=== PATIENT | female | born 1965 | race Caucasian/White ===

== ENCOUNTER 2016-09-09 07:14 | Day surgery (SDC) | payer OTHER ==
[2016-09-09] VITALS (15 sets, daily range): BP systolic 104–137; BP diastolic 55–95; PULSE 69–86; RESP 11–20; O2SAT 72–100
[~2016-09-09] VITALS: Ht 157.5 cm; Wt 76.0 kg
[2016-09-09] MEDS: Lactated Ringer's 1,000 ML IV SCH ×3 (05:00→09:48)
[~2016-09-09 07:14] MED LIST: METH750T3 PO; MULT-1018 PO; NAPR220C11 PO; mirena INTRAUTERI
[2016-09-09] MEDS ORDERED: Dexamethasone 4 mg/mL Inj ONE (07:15)
[2016-09-09] MEDS ORDERED: Morphine PF 1 mg/mL 10 mL Inj ONE (07:15)
[2016-09-09] MEDS ORDERED: Ondansetron 2 mg/mL 2 mL Inj ONE (07:15)
[2016-09-09] MEDS ORDERED: Remifentanil 1 mg/3 mL Inj ONE (07:15)
[2016-09-09] MEDS ORDERED: Ketamine 10 mg/mL 20 mL Inj ONE (07:15)
[2016-09-09] MEDS ORDERED: fentaNYL-PF 50 mCg/mL 2 mL Inj ONE (07:15)
[2016-09-09] MEDS ORDERED: Bupiv-Spinal 0.75%/Dex 8.25% 2 mL Inj ONE (07:15)
[2016-09-09] MEDS ORDERED: CeFAZolin 2 Gm/50 mL D5W Duplex Bag IV ONE (07:44)
[2016-09-09 08:01] LABS: BASOPHILS % (AUTO) 0.4 % (0-3); EOSINOPHILS % (AUTO) 1.8 % (0-5); MONOCYTES % (AUTO) 9.1 % (4-12); Mean Corpuscular Volume 90.1 fL (81-100); NEUTROPHILS % (AUTO) 64.7 % (40-74); Platelet Count 256 bil/L (150-400)
[2016-09-09] MEDS ORDERED: OMEG500C3 PO (08:04)
[2016-09-09] MEDS ORDERED: [UNRECOGNIZED DRUG - OTHER] PO (08:04)
--- NOTE | 2016-09-09 09:15 | PCM.HPANE ---
Patient Data Surgeon Admitting Provider: Attending Provider:Vasile Rider MD Primary Care Physician:Debbie Merino MD Other Provider:Paresh Mendoza Anesthesia Reason for Visit Stress Incontinence,Pelvic Floor Relaxation Ht/WT & BMI Height (Feet): 5 Height (Inches): 2.00 Weight (Kilograms): 74.2 Body Mass Index 30.00 Allergies Coded Allergies: Sulfa (Sulfonamide Antibiotics) (Verified Allergy, Intermediate, Itching, 10/19/09) hydrocodone (Verified Allergy, Unknown, vomit, 09/08/16) nabumetone (Verified Allergy, Unknown, Hives, 07/28/14) Uncoded Allergies: ABSORBABLE STITCHES (Allergy, Unknown, 07/28/14) Pt states absorbable stitches do not absorb. Past Anesthesia History Anesthesia History: Denies:: Abnormal Airway, Anesthesia Reactions, Difficult Intubation, Fam Anesthesia Reaction, Fam Malignant Hypertherm, Malignant Hyperthermia Diabetes History Hx Diabetes?: No MRSA MRSA: No Medications Hypertension Medication: No Home Meds Incl Beta Praveen: No Reported Medications [seawood] No Conflict Check PO prn 09/09/16 [place]-3 Fatty Acids (Fish Oil)500 Mg Iriksww020 Mg PO 09/09/16 Multivitamin (Multi Vitamin Daily)1 Each Tablet1 Each PO DAILY 30 Days Ref 0 09/08/16 Methocarbamol 750 Mg Tablet1,500 Mg PO Q12H PRN For Spasm Ref 0 09/08/16 Naproxen Sodium (Aleve)220 Mg Aliugvz818 Mg PO DAILY PRN For Pain 09/08/16 [mirena] 20 mcg/24hrs No Conflict Check20 Mcg INTRAUTERI 09/08/16 Discontinued Reported Medications Fexofenadine-Expunged Drug, Do Not Renew! 180 Mg Ockcdb370 Mg PO DAILY 07/31/12 diphenhydrAMINE-Expunged Drug, Do Not Renew! 25 Mg Cap25 Mg PO PRN 07/31/12 [place]-3/Dha/Epa/Fish Oil-Expunged Drug, Do No (Fish Oil 1,000 Mg-Expunged Drug, Do Not Renew)1 Each Capsule.dr1 Each PO DAILY 07/31/12 Ascorbate Calcium/Bioflav (Gilda-C 1,000 Mg Tablet)1 Each Tablet1 Each PO DAILY 07/31/12 Methocarbamol-Expunged Drug, Do Not Renew! (Cabsemv-208-Zhphirhw Drug, Do Not Renew!)750 Mg Fqimdr675-9,500 Mg PO TID 07/31/12 FLUTICASONE-Expunged Drug, Do Not Renew! (FLONASE-Expunged Drug, Do Not Renew!) 120 Sprays/16 Gm Aero2 Sprays NA DAILY 07/31/12 Gabapentin-Expunged Drug, Do Not Renew! (Neurontin-Expunged Drug, Do Not Renew!) 600 Mg Sjnwql821-645 Mg PO BID PRN 07/31/12 History History of ENT Problems?: Yes HEENT History: Positive for:: Sinus Problem (Year round allergies/multiple surgeries) Denies:: Abnormal Airway Difficult Intubation Hearing Problem Denture Type: Partial- Upper Hx of Heart Problems?: No Cardiovascular History: Positive for:: Chest Pain (Pleuritic chest pain) Denies:: AICD Congestive Heart Failure Heart Murmur Hypertension Irregular Heartbeat Pacemaker Hx of Respiratory Problem?: Yes Respiratory History: Positive for:: Pneumonia (hx of post surgical ) Denies:: Asthma COPD Emphysema Oxygen Administration Tuberculosis Use of C-PAP Machine Use of Inhalers / NEBS Hx Neurologic Problems?: Yes Neurological History: Positive for:: Dizziness (past hx, not currently maybe with sinuses) Headaches (with illnesses) Denies:: CVA Multiple Sclerosis Parkinson's Disease Seizures TIA Hx of GI Problems?: Yes Gastrointestinal History: Positive for:: Hiatal Hernia (on no meds) Denies:: Gall Bladder Disease Gastroesphageal Reflux Gastrointestinal Bleeding Hepatitis Liver Disease Rectal Bleeding Hx of Problems?: Yes Genitourinary History: Denies:: Urinary Tract Infection (hx of) Female Hx: Denies:: Currently Endometriosis Pelvic Inflammatory Problems with Breasts? Skin History: Denies:: History Skin Disorders? Pressure Ulcers Hx Musculoskeletal Problems?: Yes Musculoskeletal History: Positive for:: Back Injury (cervical fusion hx) Musculoskeletal Trauma (right shoulder hx ) Osteoarthritis Denies:: Degenerative Joint Fibromyalgia Joint Replacement Myasthenia Gravis Systemic Lupus Hx of Psycho/Social Problems?: Yes Psycho Social History: Positive for:: Anxiety (lots of stress, no active treatment) Hx Depression Hx Surgeries?: Yes (right shoulder, cervical fusion, ) Hx Any Other Health Problems?: Yes Other History: Positive for:: Hospitalization Denies:: Cancer Endocrine Disease Thyroid Disease History Blood Transfusions: Positive for:: Accept Blood Products? Denies:: Blood Transfuse Reaction Blood Transfusions Hx Diabetes: No Hx Alcohol Use: YesAlcoholic Drinks Per Day: one to three drinks weeklyHx Substance Use: No Smoking Status: Former Smoker Have You Smoked inLast 12 mo: No Stop/Bang Treated for Sleep Apnea?: No Do You Have a CPAP Machine?: No S-Snoring: Do You Snore Loudly: No T-Tired: feel tired, fatigued: Yes O-Obsered: Observed not breath: No P-Blood Pressure: treated: No B- Body Mass Index > 35 kg/m2: No A- Age over 50: Yes N- Neck Large Circumference: No G- Gender Male: No UVALDO Total Score: 2 UVALDO Risk Assessment: Low Risk, <3 Yes Risk Assessment Category Category 1A: Patient has history of documented sleep apnea, and HAS NOT received any narcotic, sedative or anesthesia administration during this stay. Category 1B: Patient has history of documented sleep apnea, and HAS received any narcotic , sedative or anesthesia administration during this stay Category 2: Patient has SUSPECTED Obstructive Sleep Apnea, and HAS received any narcotic , sedative or anesthesia administration during this stay. Category 3: Patient has SUSPECTED Obstructive Sleep Apnea and HAS NOT received narcotic, sedative or anesthesia administration during this stay. Category 4: Outpatient in Procedural Areas with known sleep apnea or who screen positive for High Risk via the STOP/BANG questionnaire. Exam Exam Vital Signs Vital Signs Date Time Temp Pulse Resp B/P Pulse Ox O2 Delivery O2 Flow Rate FiO2 09/09/16 07:54 36.6 72 18 118/82 96 Room Air General Appearance: Alert, Oriented X3, Cooperative, No Acute Distress HEENT/AIRWAY: MP 2 Lungs: Clear to Auscultation, Normal Air Movement Heart: Exam Unremarkable, Regular Rate/Rhythm, No Murmurs/Rubs/Gallops Meds/Labs/Diagnostics Admission Meds Current Medications Lactated Ringer's (Lr) 1,000 ml @ 120 mls/hr Q8H20M IV Last administered on t 07:30; Start 09/09/16 at 05:00; Stop 09/09/16 at 13:19 Labs Test 09/09/16 07:53 White Blood Count 8.3th/mm3 (3.8-10.1) Red Blood Count 4.43mil/mm3 (3.90-5.20) Hemoglobin 13.3g/dL (12.0-15.6) Hematocrit 39.9% (35.0-46.0) Mean Corpuscular Volume 90.1fL (81-100) Mean Corpuscular Hemoglobin 30.0pg (27.0-35.0) Mean Corpuscular Hemoglobin Concent 33.3% (32.0-37.0) Red Cell Distribution Width 12.0% (12.3-15.4) Platelet Count 256bil/L (150-400) Neutrophils (%) (Auto) 64.7% (40-74) Lymphocytes (%) (Auto) 23.9% (14-46) Monocytes (%) (Auto) 9.1% (4-12) Eosinophils (%) (Auto) 1.8% (0-5) Basophils (%) (Auto) 0.4% (0-3) Plan Impression Patient chart reviewed, patient interviewed and anesthestic plan with risks, benefits, and alternatives discussed, and informed consent obtained. NPO Status: water at 0500 ASA Physical Status: ASA2 Mod Systemic Disease Anesthetic Plan: SAB Bene/Risks/Altern/Consents: Yes HP Complete Prior to Induction: Yes Massimo Luo MD Sep 09, 2016 09:15
[2016-09-09] MEDS ORDERED: Bupivacaine-MPF 0.5% W/EPI 30 mL Inj INFILTRATE ONE (10:42)
[2016-09-09] MEDS ORDERED: PITRESSIN INFILTRATE ONE (10:43)
[2016-09-09] MEDS ORDERED: Gentamicin 40 mg/mL 2 mL Inj IRRIGATION ONE (11:06)
[2016-09-09] MEDS ORDERED: Estrogens Conjugated 30 Gm Vaginal Cream VAGINAL ONE ×2 (13:10→13:55)
[2016-09-09] MEDS ORDERED: Lactated Ringer's 1,000 ML IV ONE (13:33)
[2016-09-09] MEDS ORDERED: Dexamethasone 4 mg/mL Inj IVPUSH PRN (13:35)
[2016-09-09] MEDS ORDERED: Lactated Ringer's 1,000 ML IV SCH (13:35)
[2016-09-09] MEDS ORDERED: MetoCLOpramide 5 mg/mL 2 mL Inj IVPUSH PRN (13:35)
[2016-09-09] MEDS ORDERED: EPHEDrine Sulfate 50 mg/mL Inj IVPUSH PRN (13:35)
[2016-09-09] MEDS ORDERED: Ondansetron 2 mg/mL 2 mL Inj IVPUSH PRN (13:35)
[2016-09-09] MEDS ORDERED: Lactated Ringer's 500 ML IV PRN (13:35)
[2016-09-09] MEDS ORDERED: fentaNYL-PF 50 mCg/mL 2 mL Inj IVPUSH PRN (13:35)
[2016-09-09] MEDS ORDERED: Phenylephrine 10,000 mCg/mL Inj IVPUSH PRN (13:35)
[2016-09-09] MEDS ORDERED: Senna-Docusate 8.6-50 mg Tablet PO PRN (13:55)
[2016-09-09] MEDS ORDERED: Alum-Mag Hydrox-Simeth 30 mL Suspension PO PRN (13:55)
--- NOTE | 2016-09-09 14:40 | OP ---
[address] [address] OPERATIVE REPORT PATIENT: BRANDT BEDOYA : 1965 MR#: [id number] ADMIT: 09/09/2016 JOB ID: [id number] CORRECTED REPORT: DATE OF SURGERY: 09/09/2016 PROCEDURE: 1. Vaginal hysterectomy. 2. Posterior repair. 3. Mid urethral transobturator sling placement. PREOPERATIVE DIAGNOSIS(ES): 1. Uterine prolapse. 2. Cystocele. 3. Rectocele. 4. Stress urinary incontinence. POSTOPERATIVE DIAGNOSIS(ES): 1. Uterine prolapse. 2. Cystocele. 3. Rectocele. 4. Stress urinary incontinence. SURGEON: Vasile Rider MD. POLYSOMNOGRAPHER: Mayte Stratton MD. ANESTHESIA: General ANESTHESIOLOGIST: Massimo Luo MD. ESTIMATED BLOOD LOSS: 150 mL. ESTIMATED FLUIDS: 2000 mL of lactated Ringer. ESTIMATED URINE OUTPUT: 300 mL of urine. FINDINGS: Grade 2 uterine prolapse, grade 1 cystocele, grade 3 rectocele. Normal appearance of the cervix and the external genitalia. DESCRIPTION OF PROCEDURE: The patient was brought to the operating room, where she underwent spinal anesthesia without difficulty. The patient was placed in deep dorsal lithotomy position using Rj stirrups. She was prepped and draped in usual surgical fashion. She received preoperative antibiotics. Brenda Hugger was used to maintain adequate core body temperature. Time-out was performed verifying correct patient, correct procedure. A weighted speculum was placed into the vagina. The cervix was identified and grasped with two tenaculums. It was circumferentially injected with a solution of vasopressin and normal saline. Twenty units of vasopressin were diluted in 100 mL of normal saline, total of 70 mL of solution were used throughout the surgery. A long Laurita clamp was placed posteriorly on the vaginal mucosa overlying the pouch of Rashad. Plication was created and with Floyd scissors, sharp incision was made towards the cervix, and posterior cul-de-sac was entered. A 0 Vicryl suture was used to reapproximate the posterior peritoneum and posterior part of the vaginal mucosa. A circumferential incision was made with the Bovie and using Metzenbaum scissors and moist laparotomy sponge, the vaginal mucosa was dissected away from the cervix and up, the same was done on both lateral sides. Using pickup, anterior part of the peritoneum overlying the cervix was tented up, and it was sharply entered using Metzenbaum scissors. The anterior cul-de-sac was entered and right-angle retractor was placed through it to keep the bladder away from the operative field. Using Jean Carlos clamps, the patient's uterosacral and cardinal ligaments on both sides were clamped, transected with Floyd scissors and suture ligated using 0 Vicryl. The arteries on both sides were also clamped with a Jean Carlos clamp, transected with Floyd scissors and suture ligated using 0 Vicryl. Further dissection was provided along the broad ligament, followed by tubo-ovarian ligaments, fallopian tubes and round ligaments. These were in a similar fashion, suture ligated and transfixed using 0 Vicryl. The specimens, uterus and cervix, were removed and sent to Pathology. Both uterosacral ligaments on the patient's left and right side were identified, tented up with Allis clamp and suspended to the vaginal cuff using 0 Prolene suture. As a result of vaginal cuff suspension, the anterior defect cystocele was basically reduced. Circumferential running locked stitch was placed to reapproximate peritoneum and vaginal mucosa anteriorly and posteriorly. Good hemostasis was achieved. The vaginal cuff was closed with 0 Vicryl. Transobturator sling was placed. Solution of Pitressin was injected in the mid urethra, sagittal incision was made with a size 15 scalpel. The vaginal mucosa was dissected from pubovesical fascia overlying mid urethra using Metzenbaum scissors. Further dissection was made laterally creating tunnels towards the obturator foramen until the scissors reached the pubic ramus. Skin entry points were marked at the insertion of adductor longus muscle on both sides at the level of the clitoris. Skin incisions were made using scalpel. Using Ortiz passing needles with outside in rotating emotion, the obturator membranes on both sides were perforated and the needles exited at mid urethra. Ortiz tension-free tape was attached to the needle and with a backward motion, it was placed without tension in the midurethral portion. FloSeal solution was used to achieve better hemostasis. Vaginal mucosa was reapproximated with 0 Vicryl in a running, locking fashion. The tape at the skin exit was trimmed and the skin was reapproximated with one interrupted 0 Vicryl suture, Dermabond glue was applied as well. Posterior repair was performed. Pitressin solution was injected in a sagittal plane along the area of the rectocele. Two Allis clamps were placed on the perineal body on both sides. Transverse incision was made with a scalpel and further dissected towards the apex of the vagina using Metzenbaum scissors. The vaginal mucosa was from the underlying endopelvic fascia using Metzenbaum scissors. Series interrupted plicating 0 Vicryl sutures were applied along the rectocele to reduce the defect. The vaginal mucosa was trimmed and reapproximated with 0 Vicryl in a running, locking fashion. Vaginal packing with Premarin cream was inserted. Cystoscopy was performed using 70-degree scope, the bladder mucosa was found to be intact. Both ureters were patent with both ureteral jets seen. The urethra was found to be intact as well, the urine was clean. The cystoscope was removed and the Rizzo catheter was replaced. The patient was repositioned back into a supine position. She tolerated the procedure well and was transferred to the recovery room in stable condition. ADDITIONAL INFORMATION: The assistance of Dr. Stratton was necessary for tissue retraction, handling of the tissue, help with visualization during vaginal hysterectomy and posterior repair. Addenda added by JAKOB 12/28/16 at 9:07am
--- NOTE | 2016-09-09 15:12 | PCM.ANEP1 ---
Post Anesthesia Phase 1 PACU Phase 1 Assessment Vital Signs Vital Signs Date Time Temp Pulse Resp B/P Pulse Ox O2 Delivery O2 Flow Rate FiO2 09/09/16 14:47 37.3 76 17 125/68 98 Room Air 09/09/16 14:40 74 20 130/68 99 Room Air 09/09/16 14:29 80 20 117/61 98 Room Air 09/09/16 14:24 74 16 121/72 99 Room Air 09/09/16 14:17 19 100 09/09/16 14:10 37.1 75 20 132/65 97 Room Air 09/09/16 14:05 69 20 121/58 97 Room Air 09/09/16 14:03 14 72 09/09/16 14:00 79 14 115/63 98 Room Air 09/09/16 13:55 69 11 110/55 98 Nasal Cannula 2 09/09/16 13:50 36.8 73 13 104/74 98 Nasal Cannula 2 09/09/16 07:54 36.6 72 18 118/82 96 Room Air Anesthetic Administered: SAB Level of Alertness: Awake, talking CASTILLO's with Equal Strength: Yes Pain: No Nausea or Vomiting: No Oxygen Delivery: Nasal Cannula Lungs: Clear to Auscultation, Normal Air Movement Dermatome Level: L3,4 (Thigh) Massimo Luo MD Sep 09, 2016 15:12
--- NOTE | 2016-09-09 15:13 | PCM.ANEP2 ---
Post Anesthesia Evaluation ASA/CMS Post Anesthesia VS in Patient's Normal Range?: Yes Resp Stable; Airway Patent?: Yes CV Function & Hydration Stable: Yes Mental Status Recovered?: Yes Pain control Satisfactory?: Yes N/V Control Satisfactory?: Yes Massimo Luo MD Sep 09, 2016 15:13
--- NOTE | 2016-09-09 15:25 | NUR ---
Post op Pt arrived to the unit at 1525. Pt was able to transfer to the bed with some assistance. Vaginal packing in place. Rizzo catheter is patent and draining to gravity. A&Ox3. No c/o pain or nausea. CASTILLO with some numbness in her feet. Oriented to room, and DVD was played for pt. Call light within reach. Care continues.
--- NOTE | 2016-09-09 18:40 | NUR ---
Marycruz pad Pt had some serosanguineous drainage on her marycruz-pad when she came from PACU. 1630 marycruz pad was saturated and changed. Vaginal packing is coming out about 6 inches. Replaced marycruz pad. Will continue to monitor.
[2016-09-09] MEDS: MetoCLOpramide 5 mg/mL 2 mL Inj IVPUSH PRN (20:19)
[2016-09-09] MEDS: Senna-Docusate 8.6-50 mg Tablet PO SCH (22:50)
--- NOTE | 2016-09-10 04:36 | NUR ---
Peripad / Vag packing / light headed Vag packing hangs about 6 inches out. left in place for MD to remove in AM. 2nd Malaika pad almost saturated. 3rd peripad minimal saturation. Discharge has slowed significantly. Pt states pain tolerable at 3/10. APAP seems to work well. C/O light headed when standing up and became nauseous earlier in the evening. Advised to continue bedrest and sit up slowly next time. We will dangle longer prior to standing as well and see if this helps. Care continues.
--- NOTE | 2016-09-10 04:39 | NUR ---
Blood from Rectum Per ONLINE CONTENT EDITOR small amount of blood was passes from rectum in commode. darker red. Will continue to monitor.
[2016-09-10 05:08] VITALS: BP 108/67; PULSE 54; RESP 20; O2SAT 100
[2016-09-10] MEDS ORDERED: CeFAZolin Inj 2 GM in IV Premix 1 EACH IV SCH (06:00)
[2016-09-10 06:23] LABS: BASOPHILS % (AUTO) 0 % (0-3); EOSINOPHILS % (AUTO) 0.2 % (0-5); MONOCYTES % (AUTO) 7.4 % (4-12); Mean Corpuscular Hemoglobin 30.2 pg (27.0-35.0); Mean Corpuscular Volume 90.7 fL (81-100); NEUTROPHILS % (AUTO) 84.6 % (40-74); Platelet Count 237 bil/L (150-400)
[2016-09-10] MEDS: oxyCODONE-Acetamin 5-325 mg Tablet PO PRN ×3 (08:49→22:37)
[2016-09-10] MEDS: Senna-Docusate 8.6-50 mg Tablet PO SCH ×2 (08:49→20:02)
[2016-09-10 15:19] VITALS: BP 105/68; PULSE 77; RESP 18; O2SAT 98
--- NOTE | 2016-09-10 18:22 | NUR ---
nguyen dcd this am, pt voiding sufficiently, vag packing removed at same time, having mod amt vag bleeding, used 2-3 pads this shift, taking Percocet for pain and having good pain control
[2016-09-10 20:15] VITALS: BP 137/84; PULSE 77; RESP 20; O2SAT 96
--- NOTE | 2016-09-11 02:31 | NUR ---
Pain / Ambulation Pain controlled with 1 tab Percocet PRN Q4. Pt typically goes 4-6hrs before c/o pain. Pain is in vaginal area buring stinging pressure. Ambulating independently with steady gait to bathroom. Care continues
[2016-09-11 05:53] VITALS: BP 106/67; PULSE 65; RESP 16; O2SAT 97
[2016-09-11] MEDS ORDERED: CeFAZolin Inj 2 GM in IV Premix 1 EACH IV SCH (06:00)
[2016-09-11 06:24] LABS: BASOPHILS % (AUTO) 0.3 % (0-3); EOSINOPHILS % (AUTO) 1.1 % (0-5); Mean Corpuscular Hemoglobin 30.3 pg (27.0-35.0); Mean Corpuscular Volume 92.9 fL (81-100); NEUTROPHILS % (AUTO) 68.9 % (40-74); Platelet Count 189 bil/L (150-400)
[2016-09-11] MEDS: Senna-Docusate 8.6-50 mg Tablet PO SCH (07:27)
[2016-09-11] MEDS: oxyCODONE-Acetamin 5-325 mg Tablet PO PRN ×2 (07:29→12:27)
[2016-09-11] MEDS: MetoCLOpramide 5 mg/mL 2 mL Inj IVPUSH PRN (08:50)
--- NOTE | 2016-09-11 10:20 | PCM.DIMED ---
Discharge Instructions Date of Service Sep 11, 2016 Dates of Hospitalization Diet No restrictions Activity No restrictions Call your provider Fever or Chills, Shortness of breath, Bleeding, Chest pain, Vomitting, Excessive diarrhea, Weakness (unilateral) Patient Instructions Follow-up with PCP in: 2 weeks Vasile Rider MD Sep 11, 2016 10:20
[2016-09-11] MEDS ORDERED: FLUC150T3 PO (10:25)
[2016-09-11] MEDS ORDERED: IBUP800T28 PO (10:25)
[2016-09-11] MEDS ORDERED: CIPR-231 PO (10:25)
[2016-09-11] MEDS ORDERED: DOCU-41 PO (10:25)
[2016-09-11] MEDS ORDERED: OXYC1TAB24 PO (10:25)
[2016-09-11] MEDS ORDERED: ONDA4SOL PO (10:25)
[2016-09-11 10:38] VITALS: BP 111/74; PULSE 66; RESP 16; O2SAT 98
--- NOTE | 2016-09-11 11:15 | NUR ---
pain/emesis Pt this morning c/o 4/10 pelvic and rectum pain. Pt voiding well to toilet, at times dribbles, pink tinged urine and scant blood noted on pads. Medicated with 1 tab percocet per prn orders and given with saltine crackers. Pt about 1.5 hrs later vomited undigested foot, about 600ml, and states "my breakfast just didn't come fast enough". Pt states she has had trouble in the past with taking pain medication on empty stomach. Medicated with prn reglan for nausea and pt reports medications effective at decreasing pain and nausea, pain more tolerable at 2/10. Encouraged pt to have snacks with pain medication to prevent nausea. Pt agrees. Plan for pt to discharge today. Will continue to monitor. Frequent rounding. Call light in reach. Care continues.
--- NOTE | 2016-09-11 13:46 | NUR ---
discharge Orders to discharge pt to home. Pt tolerated 2nd dose 1 tab percocet after eating lunch and states working well for pain, no further nausea at this time. IV d/c'd intact by charge out clerk. Reviewed discharge instructions and medications with pt and pt verbalizes understanding. Pt's friend to come pick her up to drive her home. Pt to f/u with post-op appt on 09/22 as previously arranged. Also instructed pt to call her PCP Dr. Merino to schedule a f/u appt for 2 weeks. Hard copies of Rx given to pt. Care notes provided on medications, bladder sling procedure, vaginal hysterectomy, cystocele, rectocele, uterine prolapse. Pt will discharge to home when ride available. Care continues. Addendum: 09/11/16 at 1436 by CHANI MEDEROS RN Pt's friend here to pick her up and drive her home. Escorted out via wheelchair with ADVERTISING CLERK and discharged to home with friend driving at 1420. Pt has all belongings at discharge and discharged in stable condition.
--- NOTE | 2016-09-11 15:29 | DIS ---
[address] [address] DISCHARGE SUMMARY PATIENT: BRANDT BEDOYA : 1965 MR#: [id number] ADMIT: 09/09/2016 JOB ID: [id number] DIS: 09/11/2016 ADMITTING DIAGNOSES: 1. Uterine prolapse. 2. Cystocele. 3. Rectocele. 4. Stress urinary incontinence. DISCHARGE DIAGNOSES: 1. Uterine prolapse. 2. Cystocele. 3. Rectocele. 4. Stress urinary incontinence. 5. Status post vaginal hysterectomy with posterior repair and mid urethral transobturator sling placement. The patient is a 51-year-old, 5, para 2, who came to the hospital on September 09, 2016, and underwent a vaginal hysterectomy with posterior repair and TOT mid urethral sling placement. The surgery went uncomplicated, estimated blood loss was 150 mL. The patient was kept overnight for pain management and observation. On postoperative day one, she was stable, had minimal complaints about postoperative pain. The vital signs were temperature 36.8, pulse 64, blood pressure 108/67. The abdomen was nondistended and nontender. Vaginal packing was removed; it was bloody. She had mild vaginal spotting. Rizzo catheter was removed as well. Urine was clear. Postvoid residual was normal. She had a stable postoperative hematocrit of 34.3, white blood cell count on day one was 20.6. The patient was kept for one extra day. On the postoperative day one, September 11, 2016, vital signs were stable. Temperature 36.6, pulse 65, blood pressure 106/67, pulse oximetry showed 97th percentile of oxygenation on room air. She was able to void normally, postvoid residual was normal, vaginal spotting resolved. Her labs came back normal. White blood cell count decreased to 11.7. The patient was able to ambulate, she was not in pain. The only complaint was nausea and one episode of vomiting in the morning after breakfast. By the middle of the day, the nausea resolved. The patient was discharged home with all discharge criteria met. Discharge instructions were provided to the patient. She was given discharge medications includin. Percocet. 2. Motrin extra-strength. 3. Colace 100 mg p.o. b.i.d. p.r.n. 4. Ondansetron 4 mg p.o. t.i.d. p.r.n. 5. Cipro 500 mg p.o. b.i.d. for three days. Followup visit in [facility] is scheduled in two weeks.
--- NOTE | 2016-09-13 11:45 | PATH ---
SURGICAL PATHOLOGY Attending Physician:Vasile Rider MD CASE STATUS: Signed Out PATIENT NAME: BRANDT BEDOYA PID: [id number] : 1965 DATE COLLECTED:09/09/2016 00:00 SPECIMEN: Uterus +/- tubes/ovaries, except neoplastic, prolapse CLINICAL HISTORY: STRESS INCONTINENCE, PELVIC FLOOR RELAXATION 1). UTERUS FINAL DIAGNOSIS: 1.UTERUS: ADENOMYOSIS. INTRAMURAL LEIOMYOMAS. INTRAUTERINE DEVICE IDENTIFIED. ICD10 CODE N80.0 D25.1 GROSS DESCRIPTION: The specimen is received in formalin, labeled with the patient's name, sublabeled as uterus, and consists of a uterus (110 g, 4.7 cm AP, 9.0 cm SI, 4.3 cm ML). The ovaries and fallopian tubes are absent. The cervix (3.0 cm AP, 2.5 cm ML) has a vaginal cuff (up to 3.2 cm in depth), transverse os and patent endocervical canal. The endometrial cavity contains a white plastic T-shaped IUD with tails extending into and out of the endocervical canal. The endometrium (average thickness-0.1 cm) is cueva-pink smooth and flat. The myometrium (thickness-2.0 cm) is cueva with a whorled appearance and contains multiple solid firm white whorled homogenous well-circumscribed nodules (0.2 x 0.2 x 0.1 cm-1.4 x 1.1 x 0.8). The serosa is cueva smooth and shiny. Section code: (A-B) anterior cervix, bisected and submitted SI; (C-D) posterior cervix, bisected and submitted SI; (E, F) anterior endomyometrium; (G, H) posterior endomyometrium. 09/10/16 JM MICRO DESCRIPTION: See diagnosis. ICD-9 CODES: CPT CODES: 1: 51206 Electronically Signed Out Ayana Weiss MD [facility] [address], [place] [address] Technical component performed at [facility], [facility] [address], [place], [address]
== END 2016-09-11 14:18 | disposition home or self-care (01) ==
LOC: SAS 07:14 → OSC 15:20 → SAS 09-11 14:18
PROVIDERS: ATTEND Legal Medicine
DX: N81.2 Incomplete uterovaginal prolapse (principal); N39.3 Stress incontinence (female) (male); D25.1 Intramural leiomyoma of uterus; N80.0 Endometriosis of uterus; Z97.5 Presence of (intrauterine) contraceptive device
CPT/HCPCS: 36415; 57288; 58263; 85025; C1771; J0690; J1100; J1580; J2250; J2274; J2405; J2765; J7120

== ENCOUNTER 2017-03-04 12:23 | Emergency (ER) | payer OTHER ==
[~2017-03-04] VITALS: Ht 160 cm; Wt 77.3 kg
[~2017-03-04 12:23] MED LIST changes: +CIPR-231 PO; +DOCU-41 PO; +FLUC150T3 PO; +IBUP800T28 PO; +OMEG500C3 PO; +ONDA4SOL PO; +OXYC1TAB24 PO; -mirena INTRAUTERI
[2017-03-04 12:27] VITALS: BP 156/97; PULSE 78; RESP 16; O2SAT 98
--- NOTE | 2017-03-04 12:34 | ED.REPORT ---
HPI-Abd Pain F 40 and Over Date of Service Mar 04, 2017 ED Provider: Regan Muir MD Pt is a 52 year old female presenting to the ED complaining of left lower pelvic pain post surgery in September with complications onset 1 month ago, gradually worsening. She reports a left buttock spasm radiating to the left groin and leg. Associated symptoms include fever (last week), back pain, swelling in the legs. Denies nausea, vomiting, diarrhea, constipation,or dysuria. She denies any mechanism of injury. Nursing Notes Stated Complaint: BACK/HIP SPASM Chief Complaint: Female Abdominal Pain Nursing Notes Reviewed: Yes Allergies: Coded Allergies: Sulfa (Sulfonamide Antibiotics) (Verified Allergy, Intermediate, Itching, 03/04/17) hydrocodone (Verified Allergy, Unknown, vomit, 03/04/17) nabumetone (Verified Allergy, Unknown, Hives, 03/04/17) Uncoded Allergies: ABSORBABLE STITCHES (Allergy, Unknown, 07/28/14) Pt states absorbable stitches do not absorb. Scheduled Ciprofloxacin (Cipro) 500 Mg Tablet 500 MG PO BID Fluconazole (Fluconazole) 150 Mg Tablet 150 MG PO ONCE Multivitamin (Multi Vitamin Daily) 1 Each Tablet 1 EACH PO DAILY Ondansetron (Ondansetron) 4 Mg/5 Ml Solution 4 MG PO TID Scheduled PRN Cyclobenzaprine (Cyclobenzaprine) 5 Mg Tablet 5 MG PO HS PRN PRN Spasm Docusate Sodium (Colace) 100 Mg Capsule 100 MG PO BID PRN PRN For Constipation Ibuprofen (Ibuprofen) 800 Mg Tablet 800 MG PO TID PRN PRN For Pain Methocarbamol (Methocarbamol) 750 Mg Tablet 1,500 MG PO Q12H PRN PRN For Spasm Naproxen Sodium (Aleve) 220 Mg Capsule 220 MG PO DAILY PRN PRN For Pain oxyCODONE-Acetaminophen 5-325 mg (oxyCODONE-Acetaminophen 5-325 mg) 1 Each Tablet 1-2 TAB PO Q4H PRN PRN For Moderate Pain Miscellaneous Medications [place]-3 Fatty Acids (Fish Oil) 500 Mg Capsule 500 MG PO General Time Seen by MD: 12:31 Chief Complaint Pelvic pain Hx Obtained From: Patient Arrived By: Walk-in Sudden in Onset?: No Onset Occurred: More than a week ago... (1 month) Symptom Duration: Since onset Progression since Onset: Gradually worsening Location: : Suprapubic (Left) Quality: Painful Severity: Current: Moderate Severity: Maximum: Severe Associated with: Reports: Back pain, Fever, Denies: Constipation, Diarrhea, Dysuria, Nausea, Vomiting Recent Healthcare: No recent doctor visit, No recent hospitalization Similar Sx Previous: Yes Past Medical History Past Medical History denies Past Surgical History cervical fusion with bone graft and right shoulder resection, hernia repair, sinus surgery, hysterectomy with complications, sinus surgery Smoking History Former Smoker Social History Alcohol Use: 1-3 per week Drug Use: Denies drug use Occupation , 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 Physical Exam Vital Signs Vital Signs (First) Date Time Temp Pulse Resp B/P Pulse Ox O2 Delivery O2 Flow Rate FiO2 03/04/17 12:27 37.0 78 16 156/97 98 Room Air Initial VS: Reviewed Head / Eyes: Atraumatic, Normocephalic, PERRL ENT: Mucous membranes moist, Conjunctiva normal, No scleral icterus Extremities: Vascular intact, Neuro intact, No swelling, No tenderness Skin: Warm, Dry, No cyanosis Neurologic: Alert, Oriented, Nonfocal Psychiatric: Mood/affect normal, Behavior normal, Normal thought content General/Constitutional: Awake, Alert, No acute distress, Well appearing Respiratory / Chest: Breath sounds NL, Breath sounds = bilat, No respiratory distress, No rales, No rhonchi, No wheezing, No stridor Cardiovascular: Heart rate NL, Regular rhythm, Heart sounds NL, Peripheral circulation NL Abdomen: Atraumatic, Soft, No guarding, No rebound, No distention Tenderness/Guarding/Rebound: Positive: Tender LLQ... (Moderate) Back: Atraumatic, Inspection NL, Full range of motion, Painless range of motion , Non-tender, No CVA tenderness Interpretation & Diagnostics Lab Results Interpretation Result Diagram: 03/04/17 1304 03/04/17 1304 Test 03/04/17 12:45 03/04/17 13:04 Hold Urine Received (Received) White Blood Count 10.0th/mm3 (3.8-10.1) Red Blood Count 4.38mil/mm3 (3.90-5.20) Hemoglobin 13.0g/dL (12.0-15.6) Hematocrit 39.4% (35.0-46.0) Mean Corpuscular Volume 90.0fL (81-100) Mean Corpuscular Hemoglobin 29.7pg (27.0-35.0) Mean Corpuscular Hemoglobin Concent 33.0% (32.0-37.0) Red Cell Distribution Width 12.2% (12.3-15.4) Platelet Count 236bil/L (150-400) Neutrophils (%) (Auto) 74.2% (40-74) Lymphocytes (%) (Auto) 15.7% (14-46) Monocytes (%) (Auto) 8.1% (4-12) Eosinophils (%) (Auto) 1.3% (0-5) Basophils (%) (Auto) 0.4% (0-3) Sodium Level 136mEq/L (134-144) Potassium Level 3.8mEq/L (3.5-5.2) Chloride Level 99mEq/L (97-108) Carbon Dioxide Level 23mmol/L (18-29) Blood Urea Nitrogen 16mg/dL (6-24) Creatinine 0.60mg/dL (0.57-1.00) Estimat Glomerular Filtration Rate 150mL/min (>59) Glucose Level 140mg/dL (60-99) Calcium Level 9.6mg/dL (8.5-10.1) Magnesium Level 1.7mg/dL (1.6-2.6) Total Bilirubin 0.2mg/dL (0.0-1.2) Aspartate Amino Transf (AST/SGOT) 17U/L (0-50) Alanine Aminotransferase (ALT/SGPT) 15U/L (0-32) Alkaline Phosphatase 77U/L (25-150) Total Protein 7.4g/dL (6.4-8.4) Albumin 4.0g/dL (3.4-5.0) Lipase 36U/L (13-60) Hold [place] Top Tube Received (Received) Re-Eval/Medical Decision Med Decision/Clinical Course Due to-year-old female history of cystocele, rectocele, hysterectomy in September presenting with chronic left lower quadrant pain for the past 6 months. She reports back spasms for the past month. She has no red flag symptoms. She has no symptoms infection. Her labs are unremarkable. Her white blood cell count was normal. Her abdominal exam is benign. She appears quite well. Patient is discharged with plans to follow up with her primary doctor and surgeon. Return precautions given. Re-Evaluation/Progress : Time of Eval: 14:17 Patient Status: Condition improved Re-Evaluation/Progress Note: Discussed plan for discharge. Pt understands and agrees. Counseled Regarding: Diagnosis, Lab results, Need for follow-up, When/why to return to ED Discharge & Departure Primary Impression: Abdominal pain Abdominal location: generalized Qualified Code: R10.84 - Generalized abdominal pain Additional Impression: Back spasm Disposition: Home Discharge Condition All VS Reviewed: Yes Condition: Improved Patient Instructions: Acute Abdominal Pain (ED) Additional Instructions: Your labs show nothing concerning. Your exam was reassuring. Your urine does not show any sign of infection. I recommend that you follow up with your surgeon next week. Return to the emergency room if you develop any new or worsening symptoms such as fever, nausea, vomiting, worsening abd pain, or dysuria, leg swelling or pain, weakness, incontinence, numbness. other new/ worsening symptoms. Referrals: Debbie Merino MD (PCP) Jayla Attestation Portions of this note were transcribed by Michelle Mariee. I, Dr. Muir personally performed the history, physical exam and medical decision-making; I reviewed and confirmed the accuracy of the information in the transcribed note. Signed by: Jayla John, 03/04/2017 at 1416. copies to: Debbie Merino MD, Ben M MD Mar 04, 2017 12:34 MICHELLE MARIEE Mar 04, 2017 12:42
[2017-03-04 13:19] LABS: BASOPHILS % (AUTO) 0.4 % (0-3); EOSINOPHILS % (AUTO) 1.3 % (0-5); MONOCYTES % (AUTO) 8.1 % (4-12); Mean Corpuscular Hemoglobin 29.7 pg (27.0-35.0); NEUTROPHILS % (AUTO) 74.2 % (40-74); Platelet Count 236 bil/L (150-400)
[2017-03-04 13:39] LABS: Magnesium 1.7 mg/dL (1.6-2.6)
[2017-03-04] MEDS ORDERED: CYCL5TAB PO (14:21)
[2017-03-04 14:28] VITALS: BP 157/88; PULSE 67; O2SAT 97
== END 2017-03-04 14:25 | disposition home or self-care (01) ==
LOC: SED 12:23
DX: R10.32 Left lower quadrant pain (principal); M62.830 Muscle spasm of back; R50.9 Fever, unspecified; Z88.2 Allergy status to sulfonamides; Z88.5 Allergy status to narcotic agent; Z88.8 Allergy status to other drugs, medicaments and biological substances; Z87.891 Personal history of nicotine dependence; M79.89 Other specified soft tissue disorders
CPT/HCPCS: 36415; 80053; 83690; 83735; 85025; 96372; 99284; J1885